=== PATIENT | female | born 1985 | race Two or more races ===

== ENCOUNTER 2022-07-16 04:47 | Inpatient (IN) | payer OTHER ==
[~2022-07-16] VITALS: Ht 149.9 cm; Wt 77.6 kg
[2022-07-16] MEDS ORDERED: PRENATAL TABLE1 EAC1 PO (04:57)
[2022-07-16] MEDS ORDERED: IRON236 MG (04:57)
== END 2022-07-18 11:00 | disposition home or self-care (01) | DRG 807 ==
LOC: LDR 04:47 → OB/GYN 05:21 → LDR 07:16 → OB/GYN 18:07 → LDR 07-27 14:15
PROVIDERS: ADMIT Obstetrics & Gynecology; ATTEND Obstetrics & Gynecology
PROC: 10E0XZZ Delivery of Products of Conception, External Approach (ICD-10-PCS; principal; 2022-07-16)
PROC: 4A1HXCZ Monitoring of Products of Conception, Cardiac Rate, External Approach (ICD-10-PCS; 2022-07-16)
DX: O80 Encounter for full-term uncomplicated delivery (principal); Z37.0 Single live birth; Z3A.38 38 weeks gestation of pregnancy; Z20.822 Contact with and (suspected) exposure to COVID-19